=== PATIENT | female | born 1960 ===

== ENCOUNTER 2017-07-20 12:13 | Emergency (ER) | payer MEDICARE, OTHER ==
[2017-07-20 12:13] VITALS: BMI 29.1
[2017-07-20 12:28] VITALS: TEMP 98
[2017-07-20] MEDS ORDERED: Albuterol-Ipratrop 3 mg / 0.5 (3 ml) UD ONE (13:34)
[2017-07-20] MEDS: Albuterol-Ipratrop 3 mg / 0.5 (3 ml) UD IH SCH (13:44)
[2017-07-20 13:59] LABS: BASO % 0.2 % (0.0-2.0); EOS # 0.2 K/uL (0.0-0.7); EOS % 2.5 % (0.0-4.0); HEMOGLOBIN 13.4 g/dL (11.0-16.0); LYMPH # 2.2 K/uL (1.0-4.3); LYMPH % 23.2 % (20.0-40.0); MEAN CELL VOLUME 91.8 fL (81.0-99.0); MEAN CORPUSCULAR HEMOGLOBIN 30.4 pg (27.0-31.0); MEAN CORPUSCULAR HGB CONC 33.1 g/dL (33.0-37.0); MEAN PLATELET VOLUME 9.3 fL (7.2-11.7); MONO # 1.2 K/uL (0.0-0.8); MONO % 12.4 % (0.0-10.0); NEUT # 5.8 K/uL (1.8-7.0); NEUT % 61.7 % (50.0-75.0); NRBC % 0.1 % (0.0-2.0); RBC 4.39 Mil/uL (3.80-5.20); RED CELL DISTRIBUTION WIDTH 14.8 % (11.5-14.5); WHITE BLOOD COUNT 9.4 K/uL (4.8-10.8)
[2017-07-20 14:11] LABS: ALB/GLOB RATIO 0.9 (1.0-2.1); ALBUMIN 3.7 g/dL (3.5-5.0); ALT/SGPT 36 U/L (9-52); AST/SGOT 27 U/L (14-36); BLOOD UREA NITROGEN 13 mg/dL (7-17); CALCIUM 9.3 mg/dl (8.6-10.4); GFR AFRICAN-AMERICAN > 60; GFR NON-AFRICAN AMERICAN > 60
--- NOTE | 2017-07-20 14:21 | RAD ---
HISTORY: SOB, productive cough, hypoxia COMPARISON: 03/04/2016 TECHNIQUE: Chest PA and lateral FINDINGS: LUNGS: Lower lobe infiltrates accentuated by body habitus. PLEURA: No significant pleural effusion identified. No pneumothorax apparent. CARDIOVASCULAR: No radiographic findings to suggest acute or significant cardiovascular disease. OSSEOUS STRUCTURES: No significant abnormalities. Stable thoracolumbar scoliosis VISUALIZED UPPER ABDOMEN: Normal. OTHER FINDINGS: None. IMPRESSION: Lower lobe infiltrates/interstitial lung disease. More pronounced findings compared to the prior study.
[2017-07-20 14:23] LABS: B-TYPE NATRIURETIC PEPTIDE 370 pg/mL (0-900)
--- NOTE | 2017-07-20 14:55 | C.PDOC ---
Time Seen by Provider: 07/20/17 13:08 Chief Complaint (Nursing): Shortness Of Breath History Per: Patient Onset/Duration Of Symptoms: Days (about 1 week) Current Symptoms Are (Timing): Still Present Initiating Event: Upper Respiratory Illness Current Respiratory Medications: See Home Med List Severity: Moderate Associated Symptoms: Productive Cough Additional History Per: Prior Records Past Medical History Reviewed: Historical Data, Nursing Documentation, Vital Signs Vital Signs: Last Vital Signs Temp 98 F 07/20/17 12:19 Pulse 91 H 07/20/17 12:19 Resp 18 07/20/17 13:04 BP 97/60 L 07/20/17 12:19 Pulse Ox 90 L 07/20/17 14:59 - Medical History PMH: Asthma, CHF (as per medical record), COPD (on home O2), Depression, Hypercholesterolemia, Kidney Stones, Peripheral Edema - [facility] Procedures INJECT/INFUSE NEC (07/14/13) INSERTION OF ENDOTRACHEAL AIRWAY INTO TRACHEA, VIA OPENING (12/08/14) LOCAL EXCIS BREAST LES (04/12/97) NEBULIZER THERAPY (11/04/12) RESPIRATORY VENTILATION, GREATER THAN 96 CONSECUTIVE HOURS (12/08/14) Family History: States: Unknown Family Hx - Social History Hx Tobacco Use: Yes (Quit 2 years ago) Hx Alcohol Use: No Hx Substance Use: No - Immunization History Hx Tetanus Toxoid Vaccination: No Hx Influenza Vaccination: No Hx Pneumococcal Vaccination: Yes Review Of Systems Except As Marked, All Systems Reviewed And Found Negative. Constitutional: Negative for: Fever ENT: Positive for: Nose Congestion Cardiovascular: Negative for: Chest Pain, Edema Respiratory: Positive for: Cough, Shortness of Breath, Sputum Gastrointestinal: Negative for: Vomiting, Abdominal Pain Musculoskeletal: Negative for: Neck Pain, Back Pain, Leg Pain Skin: Negative for: Rash Neurological: Negative for: Weakness, Numbness Physical Exam - Physical Exam Appears: In Acute Distress (mild) Skin: Normal Color, Warm, Dry, No Rash Head: Atraumatic, Normacephalic Eye(s): bilateral: PERRL, EOMI Neck: Normal ROM, Supple Cardiovascular: Rhythm Regular Respiratory: No Accessory Muscle Use, Rhonchi Gastrointestinal/Abdominal: Soft, No Tenderness Back: No CVA Tenderness Extremity: Normal ROM, No Pedal Edema, No Calf Tenderness Neurological/Psych: Oriented x3, Normal Motor, Normal Sensation ED Course And Treatment - Laboratory Results Result Diagrams: 07/20/17 13:54 07/20/17 13:54 Lab Interpretation: No Acute Changes ECG: Interpreted By Me ECG Rhythm: Sinus Rhythm ECG Interpretation: No Acute Changes Rate From EC O2 Sat by Pulse Oximetry: 90 Pulse Ox Interpretation: Abnormal Interpretation Of Abnormal: Hypoxia on RA - Radiology CXR: Viewed By Me, Read By Radiologist CXR Interpretation: Yes: Other (Lower lobe infiltrates/interstitial lung disease. More pronounced findings compared to the prior study.) Progress Note: Pt needs admission, however she is not willing to stay. She insists on leaving AMA even after I explained to her that she may become worse at home to the point where she can stop breathing and . Against Medical Advice - AMA Patient Left Against Medical Advice: The patient declines admission to the hospital and wishes to leave the Emergency Department. This action is against my medical advice. This decision was made with informed refusal. The patient was told that admission to the hospital is necessary. Explanation of the reasons why were discussed. The risks of leaving were explained to the patient and include, but are not limited to, worsening of known or currently unknown conditions, permanent disability and from undiagnosed or untreated conditions. The patient has the capacity to make this informed decision and understands my explanation of the current medical problem and risks of leaving. The patient voluntarily accepts these risks and signed an AMA form documenting our conversation. The patient was given the opportunity to ask questions and reconsider. The patient was encouraged to return to the Emergency Department at any time for further care. Progress - Interventions Interventions:: Observation, Intravenous fluid, Oxygen - Medications Administered Oral: Other (Abx) Inhaled nebulized: Anticholinergic, Beta-2 agonist Intravenous: Corticosteroid - Data Reviewed Data Reviewed: Lab, Diagnostic imaging, EKG, Old records - Patient Status Patient status: Partially improved - Critical Care Citical Care: Excluding Proc Time Critical Care Time: 60 minutes - Continuity of Care Discussed patient case with:: Patient, ED Nurse Disposition Counseled Patient/Family Regarding: Studies Performed, Diagnosis, Need For Followup, Rx Given - Disposition Referrals: Fermin Le MD [Staff Provider] - Disposition: AGAINST MEDICAL ADVICE Disposition Time: 15:10 Condition: GUARDED Additional Instructions: Follow up with you doctor as soon as possible. Return to the ER if you change your mind, develop chest pain, shortness of breath, fever, worsening of symptoms or if you have any other concerns. Prescriptions: Albuterol Sulfate [Ventolin Hfa] 2 puff IH Q4 PRN #1 unit PRN Reason: Wheezing Moxifloxacin [Avelox] 400 mg PO DAILY #7 tab predniSONE [predniSONE Tab] 2 tab PO DAILY #10 tab Instructions: Leaving Against Medical Advice, Pneumonia, Adult (DC) Forms: [employer] (Kiswahili) - Clinical Impression Clinical Impression: Left against medical advice, COPD exacerbation, Pneumonia
[2017-07-20 15:15] VITALS: BP 114/70; PULSE 92; RESP 22
[2017-07-20 15:20] VITALS: O2SAT 90
--- NOTE | 2017-07-21 19:12 | CARD ---
APPROVED REPORT EKG Measurement Heart [id number] <Conclusion> Normal sinus rhythm Normal ECG
== END 2017-07-20 15:13 | disposition left against medical advice (07) ==
LOC: C.ER 12:13
DX: J44.1 Chronic obstructive pulmonary disease with (acute) exacerbation (principal); J18.9 Pneumonia, unspecified organism
CPT/HCPCS: 71046; 80053; 83735; 83880; 84484; 85025; 87040; 93005; 94640; 96374; 99283; J2930

== ENCOUNTER 2018-04-06 09:31 | Inpatient (IN) | payer MEDICARE, OTHER ==
[2018-04-06 09:31] VITALS: BMI 29.1
[2018-04-06] MEDS ORDERED: Albuterol-Ipratrop 3 mg / 0.5 (3 ml) UD ONE ×2 (09:57→11:19)
[2018-04-06] MEDS ORDERED: Magnesium Sulfate 1 gm in D5W 1 GM/100 ML BAG IVPB ONE ×2 (10:08→10:19)
[2018-04-06 10:21] LABS: BASO % 0.4 % (0.0-2.0); EOS # 0.1 K/uL (0.0-0.7); EOS % 0.9 % (0.0-4.0); HEMOGLOBIN 14.1 g/dL (11.0-16.0); LYMPH # 1.2 K/uL (1.0-4.3); MEAN CELL VOLUME 92.5 fL (81.0-99.0); MEAN CORPUSCULAR HEMOGLOBIN 29.3 pg (27.0-31.0); MEAN CORPUSCULAR HGB CONC 31.6 g/dL (33.0-37.0); MEAN PLATELET VOLUME 10.5 fL (7.2-11.7); MONO # 0.6 K/uL (0.0-0.8); MONO % 9.6 % (0.0-10.0); NEUT # 4.6 K/uL (1.8-7.0); NEUT % 70.1 % (50.0-75.0); RBC 4.83 Mil/uL (3.80-5.20); RED CELL DISTRIBUTION WIDTH 14.7 % (11.5-14.5); WHITE BLOOD COUNT 6.5 K/uL (4.8-10.8)
[2018-04-06] MEDS: Albuterol-Ipratrop 3 mg / 0.5 (3 ml) UD IH SCH ×2 (10:45→11:00)
--- NOTE | 2018-04-06 10:45 | C.PDOC ---
History Of Present Illness 58 y/o female,w/PMhx of COPD, brought to ER by ambulance for evaluation of nasal congestion x 6 dys and cough, wheezing, difficulty breathing x 3 days. As per EMS, patient was found to have 79 % pulse O2 saturation at home and they treated her with 2 Duonebs in the field. Patient reports that she has history of intubation with trach placement in October 2017 when she was visiting her son in [place].Patient notes that she went to [facility] 6 days ago with her son who had an interview. Denies having known sick contacts, fever, chills, dizziness, CP, nausea,vomiting, and abdominal pain. Time Seen by Provider: 04/06/18 09:34 Chief Complaint (Nursing): Respiratory Distress History Per: Patient, EMS History/Exam Limitations: no limitations Onset/Duration Of Symptoms: Days Current Symptoms Are (Timing): Still Present Severity: Moderate Past Medical History Reviewed: Historical Data, Nursing Documentation, Vital Signs Vital Signs: Last Vital Signs Temp 98.3 F 04/06/18 09:58 Pulse 102 H 04/06/18 09:58 Resp 22 04/06/18 09:58 BP 96/52 L 04/06/18 09:58 Pulse Ox 84 L 04/06/18 09:58 - Medical History PMH: Asthma, CHF (as per medical record), COPD (on home O2), Depression, Hypercholesterolemia, Kidney Stones, Peripheral Edema, Chronic Kidney Disease Denies: Dementia, HTN (PT DENIES) Other Surgeries: Hx of surgeries - [facility] Procedures INJECT/INFUSE NEC (07/14/13) INSERTION OF ENDOTRACHEAL AIRWAY INTO TRACHEA, VIA OPENING (12/08/14) LOCAL EXCIS BREAST LES (04/12/97) NEBULIZER THERAPY (11/04/12) RESPIRATORY VENTILATION, GREATER THAN 96 CONSECUTIVE HOURS (12/08/14) Family History: States: No Known Family Hx - Social History Hx Tobacco Use: Yes (Quit 2 years ago) Hx Alcohol Use: No Hx Substance Use: No - Immunization History Hx Tetanus Toxoid Vaccination: No Hx Influenza Vaccination: No Hx Pneumococcal Vaccination: Yes Review Of Systems Except As Marked, All Systems Reviewed And Found Negative. Constitutional: Negative for: Fever, Chills ENT: Positive for: Nose Congestion Cardiovascular: Negative for: Chest Pain Respiratory: Positive for: Cough, Shortness of Breath, Wheezing Gastrointestinal: Negative for: Nausea, Vomiting, Abdominal Pain Physical Exam - Physical Exam Appears: Non-toxic, No Acute Distress, Other (speaking in full sentences) Skin: Normal Color, Warm, Dry Head: Atraumatic, Normacephalic Eye(s): bilateral: Normal Inspection Nose: Normal Oral Mucosa: Moist Throat: Normal, No Erythema, No Exudate, Other (fair air entryway) Neck: Supple Chest: Symmetrical Cardiovascular: Rhythm Regular Respiratory: No Rales, Rhonchi (diffuse rhonchi), Wheezing (diffuse expiratory wheezing) Gastrointestinal/Abdominal: Soft, No Tenderness, No Guarding, No Rebound Extremity: Normal ROM, Other (no pitting edema) Neurological/Psych: Oriented x3, Normal Speech ED Course And Treatment - Laboratory Results Result Diagrams: 04/06/18 10:18 04/06/18 10:18 ECG: Interpreted By Me, Viewed By Me ECG Rhythm: Sinus Rhythm Interpretation Of ECG: NSR with normal intervals, left axis deviation, and no ST elevations Rate From EC O2 Sat by Pulse Oximetry: 84 (RA) Pulse Ox Interpretation: Abnormal - Radiology CXR: Interpreted by Me CXR Interpretation: Yes: No Acute Disease Medical Decision Making Medical Decision Making: Plan: --Labs --CXR --Albuterol --Solu-Medrol IV --Magnesium Sulfate IV Patient reassessed, w/minimum improvement. O2 sat now 90% on 2LNC. Plan admit for further evaluation and management. Patient agreeable w/POC. 11:45 case d/w hospitalist Dr.Naresh Harvey who accepts pt to his service. Disposition Counseled Patient/Family Regarding: Studies Performed, Diagnosis - Disposition Disposition: HOSPITALIZED Disposition Time: 11:47 Condition: STABLE - Clinical Impression Clinical Impression: COPD exacerbation - Scribe Statement The provider has reviewed the documentation as recorded by the Harpreetibe Venus Bishop Provider Attestation: All medical record entries made by the Scribe were at my direction and personally dictated by me. I have reviewed the chart and agree that the record accurately reflects my personal performance of the history, physical exam, medical decision making, and the department course for this patient. I have also personally directed, reviewed, and agree with the discharge instructions and disposition.
[2018-04-06 10:47] LABS: ALB/GLOB RATIO 1.3 (1.0-2.1); ALBUMIN 4.3 g/dL (3.5-5.0); ALT/SGPT 23 U/L (9-52); AST/SGOT 31 U/L (14-36); BLOOD UREA NITROGEN 16 mg/dL (7-17); CALCIUM 8.9 mg/dl (8.6-10.4); GFR NON-AFRICAN AMERICAN > 60
[2018-04-06 10:52] LABS: B-TYPE NATRIURETIC PEPTIDE 192 pg/mL (0-900)
[2018-04-06 11:20] LABS: ARTERIAL BLOOD GAS HCO3 25.8 mmol/L (21-28); ARTERIAL BLOOD GAS HEMOGLOBIN 14.1 g/dL (11.7-17.4); ARTERIAL BLOOD GAS O2 SAT 93.6 % (95-98); ARTERIAL BLOOD GAS PCO2 82 mm/Hg (35-45); ARTERIAL BLOOD GAS PO2 67 mm/Hg (80-100); ARTERIAL BLOOD GAS TCO2 34.5 mmol/L (22-28)
[2018-04-06] MEDS ORDERED: Albuterol-Ipratrop 3 mg / 0.5 (3 ml) UD INH PRN (14:20)
--- NOTE | 2018-04-06 14:26 | CP.PCM.HP ---
<Sharan Arriola - Last Filed: 04/06/18 14:52> History of Present Illness - History of Present Illness History of Present Illness: PGY-1 History and Physical for Dr. Marisol Haddadterrie Wayne is a 58-year-old female with COPD complaining of shortness of breath and low 02 sat on home monitor. Patient first reports experiencing a mild cough with clear sputum production. Then over the past few days, patient began to develop increasing shortness of breath. Patient is on home 02, typically set at 3l- with increasing SOB she required 4L and still found O2 sat to be in low 70s. Patient was last hospitalized with COPD exacerbation in October 2017 when she was on a flight to [place], which had to be grounded because her O2 saturation dropped to 50%. At this time she then had a tracheostomy placed at the hospital and required CPR. Tracheostomy has since been reversed. At baseline she is not short of breath at rest, but does become short of breath with mild exertion. For the most part she is able to function comfortrably using home oxygen. Surgical: multiple , tracheostomy Social: no alcohol, no drugs, 20 pack year smoking (quit 2 years ago). 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 Lives at home with and grandson, [employer]LL REPA[employer]ER comes 4 hours/day Allergies: none Medication: Takes one medication at home by mouth, does not remember name of medication. States she does not use any inhalers at home. Past Medical History: COPD Family Hx: unknown PMD: Dr. Fermin Le Code: Full Code Present on Admission - Present on Admission Any Indicators Present on Admission: No Review of Systems - Constitutional Constitutional: absent: Chills, Fatigue, Fever - EENT Eyes: absent: Blind Spots, Blurred Vision Nose/Mouth/Throat: Dry Mouth. absent: Nasal Congestion, Nasal Discharge, Nasal Obstruction - Cardiovascular Cardiovascular: absent: Chest Pain, Chest Pain at Rest, Chest Pain with Activity, Edema, Pain Radiating to Arm/Neck/Jaw, Pedal Edema - Respiratory Respiratory: Cough, Dyspnea (shortness of breath), Dyspnea on Exertion. absent: Change in Mucous Color Additional comments: Cough productive of clear mucous - Gastrointestinal Gastrointestinal: absent: Diarrhea, Nausea, Vomiting - Genitourinary Genitourinary: absent: Dysuria, Flank Pain - Musculoskeletal Musculoskeletal: absent: Back Pain, Neck Pain, Numbness, Tingling - Neurological Neurological: absent: Confusion, Dizziness, Numbness - Psychiatric Psychiatric: absent: Anxiety, Depression - Endocrine Endocrine: absent: Fatigue, Palpitations Past Patient History - Infectious Disease Hx of Infectious Diseases: None - Tetanus Immunizations Tetanus Immunization: Unknown - Past Medical History & Family History Past Medical History?: Yes - Past Social History Smoking Status: Former Smoker - CARDIAC Hx Congestive Heart Failure: Yes (as per medical record) Hx Hypercholesterolemia: Yes Hx Hypertension: No (PT DENIES) Hx Peripheral Edema: Yes - PULMONARY Hx Asthma: Yes Hx Chronic Obstructive Pulmonary Disease (COPD): Yes (on home O2) - NEUROLOGICAL Hx Dementia: No - HEENT Hx HEENT Problems: No - RENAL Hx Chronic Kidney Disease: Yes Hx Kidney Stones: Yes - ENDOCRINE/METABOLIC Hx Diabetes Mellitus Type 2: No - HEMATOLOGICAL/ONCOLOGICAL Hx Blood Disorders: No - MUSCULOSKELETAL/RHEUMATOLOGICAL Hx Musculoskeletal Disorders: No Hx Falls: No - GASTROINTESTINAL Hx Gastrointestinal Disorders: No - GENITOURINARY/GYNECOLOGICAL Hx Genitourinary Disorders: No - PSYCHIATRIC Hx Depression: Yes Hx Substance Use: No - SURGICAL HISTORY Hx Surgeries: Yes Hx Tubal Ligation: Yes Other/Comment: LT BREAST LUMPECTOMY..BENIGN - ANESTHESIA Hx Anesthesia: Yes Hx Anesthesia Reactions: No Hx Malignant Hyperthermia: No Meds Allergies/Adverse Reactions: Allergies Allergy/AdvReac Type Severity Reaction Status Date / Time No Known Allergies Allergy Verified 04/06/18 09:47 Physical Exam - Constitutional Appears: Non-toxic, No Acute Distress - Head Exam Head Exam: ATRAUMATIC, NORMOCEPHALIC - Eye Exam Eye Exam: EOMI, Normal appearance - ENT Exam ENT Exam: Mucous Membranes Dry Additional comments: cyanotic lips - Respiratory Exam Respiratory Exam: Rhonchi (rhonic at bases bilaterally), Wheezes (Diffuse expiratory wheezes). absent: Accessory Muscle Use, Rales, Respiratory Distress Additional comments: On bipap - Cardiovascular Exam Cardiovascular Exam: REGULAR RHYTHM, +S1, +S2 - GI/Abdominal Exam GI & Abdominal Exam: Normal Bowel Sounds, Soft. absent: Tenderness - Extremities Exam Extremities exam: Negative for: pedal edema, tenderness Additional comments: clubbing - Neurological Exam Neurological exam: Alert, CN II-XII Intact, Oriented x3 - Psychiatric Exam Psychiatric exam: Normal Affect, Normal Mood - Skin Skin Exam: Dry, Intact Results - Vital Signs Recent Vital Signs: Last Vital Signs Temp 98.3 F 04/06/18 14:09 Pulse 99 H 04/06/18 14:09 Resp 20 04/06/18 14:09 BP 120/76 04/06/18 14:09 Pulse Ox 93 L 04/06/18 14:09 - Labs Result Diagrams: 04/06/18 10:18 04/06/18 10:18 Labs: Laboratory Results - last 24 hr 04/06/18 04/06/18 04/06/18 10:18 10:18 11:16 WBC 6.5 RBC 4.83 Hgb 14.1 Hct 44.7 MCV 92.5 MCH 29.3 MCHC 31.6 L RDW 14.7 H Plt Count 170 D MPV 10.5 Neut % (Auto) 70.1 Lymph % (Auto) 19.0 L Clayton % (Auto) 9.6 Eos % (Auto) 0.9 Baso % (Auto) 0.4 Neut # (Auto) 4.6 Lymph # (Auto) 1.2 Clayton # (Auto) 0.6 Eos # (Auto) 0.1 Baso # (Auto) 0.0 Puncture Site Rba pCO2 82 H* pO2 67 L HCO3 25.8 ABG pH 7.20 L ABG Total CO2 34.5 H ABG O2 Saturation 93.6 L ABG Base Excess 1.3 ABG Hemoglobin 14.1 ABG Carboxyhemoglobin 2.1 H POC ABG HHb (Measured) 6.2 H ABG Methemoglobin 0.5 Osvaldo Test Na A-a O2 Difference 80.0 Respiratory Index 1.2 Hgb O2 Saturation 91.2 L Liter Flow 4.0 FiO2 35.0 Crit Value Called To Dr.brooks rapp Crit Value Called By Foster doherty Crit Value Read Back Y Blood Gas Notified Time 1115 Sodium 138 Potassium 3.7 Chloride 99 Carbon Dioxide 31 H Anion Gap 12 BUN 16 Creatinine 0.8 Est GFR ( Amer) > 60 Est GFR (Non-Af Amer) > 60 Random Glucose 117 H Calcium 8.9 Total Bilirubin 0.9 AST 31 ALT 23 Alkaline Phosphatase 91 Troponin I < 0.0120 NT-Pro-B Natriuret Pep 192 Total Protein 7.6 Albumin 4.3 Globulin 3.3 Albumin/Globulin Ratio 1.3 Assessment & Plan - Assessment and Plan (Free Text) Assessment: 58 year old female presenting with cough and shortness of breath admitted for COPD exacerbation COPD Exacerbation -On BiPap -CXR portable 04/06 - official read pending; no clear infiltrates visible -Pulmonary consult, Dr. Rose - f/u recs Meds -Duonebs INH Q4 KORINA -Duonebs INH Q2 prn -Solumedrol 40 mg IV daily (125 mg IV given once in ED) -Mucinex LA 600 mg PO BID -Pulmicort 0.25 mg INH Q12 -Azithromycin 500 mg IV daily PPx GI ppx not indicated DVT: Heparin 5000 U SC Q12, SCDs Assessment and plan discussed with Dr. Marisol Arriola, PGY-1 <Guerrero Damon - Last Filed: 04/06/18 17:07> Results - Vital Signs Recent Vital Signs: Last Vital Signs Temp 98.2 F 04/06/18 16:00 Pulse 99 H 04/06/18 16:00 Resp 24 04/06/18 16:00 BP 112/68 04/06/18 16:00 Pulse Ox 93 L 04/06/18 16:00 - Labs Result Diagrams: 04/06/18 10:18 04/06/18 10:18 Labs: Laboratory Results - last 24 hr 04/06/18 04/06/18 04/06/18 10:18 10:18 11:16 WBC 6.5 RBC 4.83 Hgb 14.1 Hct 44.7 MCV 92.5 MCH 29.3 MCHC 31.6 L RDW 14.7 H Plt Count 170 D MPV 10.5 Neut % (Auto) 70.1 Lymph % (Auto) 19.0 L Clayton % (Auto) 9.6 Eos % (Auto) 0.9 Baso % (Auto) 0.4 Neut # (Auto) 4.6 Lymph # (Auto) 1.2 Clayton # (Auto) 0.6 Eos # (Auto) 0.1 Baso # (Auto) 0.0 Puncture Site Rba pCO2 82 H* pO2 67 L HCO3 25.8 ABG pH 7.20 L ABG Total CO2 34.5 H ABG O2 Saturation 93.6 L ABG Base Excess 1.3 ABG Hemoglobin 14.1 ABG Carboxyhemoglobin 2.1 H POC ABG HHb (Measured) 6.2 H ABG Methemoglobin 0.5 Osvaldo Test Na A-a O2 Difference 80.0 Respiratory Index 1.2 Hgb O2 Saturation 91.2 L Liter Flow 4.0 FiO2 35.0 Crit Value Called To Dr.brooks rapp Crit Value Called By Foster doherty Crit Value Read Back Y Blood Gas Notified Time 1115 Sodium 138 Potassium 3.7 Chloride 99 Carbon Dioxide 31 H Anion Gap 12 BUN 16 Creatinine 0.8 Est GFR ( Amer) > 60 Est GFR (Non-Af Amer) > 60 Random Glucose 117 H Calcium 8.9 Total Bilirubin 0.9 AST 31 ALT 23 Alkaline Phosphatase 91 Troponin I < 0.0120 NT-Pro-B Natriuret Pep 192 Total Protein 7.6 Albumin 4.3 Globulin 3.3 Albumin/Globulin Ratio 1.3 Attending/Attestation - Attestation I have personally seen and examined this patient.: Yes I have fully participated in the care of the patient.: Yes I have reviewed all pertinent clinical information: Yes Notes (Text): 58 year old female presenting with cough and shortness of breath admitted for COPD exacerbation Acute COPD Exacerbation
[2018-04-06] MEDS: Albuterol-Ipratrop 3 mg / 0.5 (3 ml) UD INH SCH ×2 (16:57→20:31)
[2018-04-06] MEDS: guaiFENesin 600 mg ER Tab PO SCH (18:06)
[2018-04-06] MEDS: MethylPREDNISolone 40 mg Vial IVP SCH ×2 (18:07→23:50)
--- NOTE | 2018-04-06 18:45 | RAD ---
HISTORY: SOB COMPARISON: Chest x-ray performed 07/20/17 TECHNIQUE: Chest, one view. FINDINGS: LUNGS: Patchy infiltrates involving the medial right lower lobe and left mid to lower lung zones may reflect atelectasis however pneumonia is not excluded in the proper clinical setting. PLEURA: No significant pleural effusion identified. No definite pneumothorax . CARDIOVASCULAR: Cardiomegaly. Ectatic aorta with atherosclerotic calcifications. OSSEOUS STRUCTURES: Scoliosis. Multilevel degenerative changes of the spine. Changes involving bilateral shoulder joints, partially imaged. VISUALIZED UPPER ABDOMEN: Unremarkable. OTHER FINDINGS: None. IMPRESSION: Patchy infiltrates involving the medial right lower lobe and left mid to lower lung zones may reflect atelectasis however pneumonia is not excluded in the proper clinical setting. Cardiomegaly. Ectatic aorta.
[2018-04-06] MEDS ORDERED: Budesonide 0.5 mg/2 ml Inhal Susp UD INH SCH (20:00)
[2018-04-06] MEDS: Budesonide 0.25 mg/2 ml Inhal Susp UD INH SCH (20:32)
[2018-04-07] MEDS: Albuterol-Ipratrop 3 mg / 0.5 (3 ml) UD INH SCH ×7 (00:19→23:51)
[2018-04-07] MEDS: MethylPREDNISolone 40 mg Vial IVP SCH ×4 (06:23→23:44)
--- NOTE | 2018-04-07 07:36 | CP.PCM.PN ---
Subjective - Date & Time of Evaluation Date of Evaluation: 04/07/18 Time of Evaluation: 07:33 - Subjective Subjective: PGY-1 Elizabeth Billingsley D.O. Medicine progress note for Dr. Renner's service: Patient was seen and examined this morning. She is on BiPAP, no acute distress. Patient is insisting that someone told her she could go home today, and she would like to leave. Explained to patient that she is desaturating off of BiPAP and it would be better for her to get more treatment and be seen by reliability manager. Patient agrees to stay for now. She says she is feeling better. She endorses cough. Denies SOB presently. Denies fevers and chills. Objective - Vital Signs/Intake and Output Vital Signs (last 24 hours): Temp Pulse Resp BP Pulse Ox 98 F 77 22 122/78 92 L 04/07/18 05:38 04/07/18 05:38 04/07/18 05:38 04/07/18 05:38 04/07/18 05:38 - Medications Medications: Current Medications Albuterol/Ipratropium (Duoneb 3 Mg/0.5 Mg (3 Ml) Ud) 3 ml INH RQ4 KORINA Last Admin: 04/07/18 03:18 Dose: 3 ml Albuterol/Ipratropium (Duoneb 3 Mg/0.5 Mg (3 Ml) Ud) 3 ml INH RQ2 PRN PRN Reason: Shortness of Breath Budesonide (Pulmicort Respules) 0.25 mg INH RQ12 KORINA Last Admin: 04/06/18 20:32 Dose: 0.25 mg Guaifenesin (Mucinex La) 600 mg PO BID KORINA Last Admin: 04/06/18 18:06 Dose: 600 mg Heparin Sodium (Porcine) (Heparin) 5,000 units SC Q12 KORINA Last Admin: 04/06/18 22:06 Dose: 5,000 units Azithromycin 500 mg/ Sodium (Chloride) 250 mls @ 250 mls/hr IVPB DAILY [facility]; Protocol Influenza Virus Vaccine (Flucelvax Quad [id number] Syr) 60 mcg IM .ONCE ONE Stop: 04/07/18 10:01 Methylprednisolone (Solu-Medrol) 40 mg IVP Q6 KORINA Last Admin: 04/07/18 06:23 Dose: 40 mg - Labs Labs: 04/06/18 10:18 04/06/18 10:18 - Constitutional Appears: Non-toxic, No Acute Distress - Head Exam Head Exam: ATRAUMATIC, NORMAL INSPECTION - Eye Exam Eye Exam: EOMI, Normal appearance - ENT Exam ENT Exam: Mucous Membranes Moist - Neck Exam Neck Exam: Normal Inspection - Respiratory Exam Respiratory Exam: Decreased Breath Sounds, Rales (b/l lower lung sosa), NORMAL BREATHING PATTERN. absent: Accessory Muscle Use, Wheezes, Respiratory Distress Additional comments: BiPAP- FiO2 60% - Cardiovascular Exam Cardiovascular Exam: REGULAR RHYTHM, +S1, +S2 - GI/Abdominal Exam GI & Abdominal Exam: Soft. absent: Distended, Tenderness - Extremities Exam Extremities Exam: Normal Inspection. absent: Pedal Edema - Back Exam Back Exam: NORMAL INSPECTION - Neurological Exam Neurological Exam: Alert, Awake, CN II-XII Intact, Oriented x3 - Psychiatric Exam Psychiatric exam: Normal Affect, Normal Mood - Skin Skin Exam: Dry, Normal Color, Warm Assessment and Plan - Assessment and Plan (Free Text) Assessment: Patient is a 58 yo female with a history of COPD on home O2 who presented with SOB. Treating patient for COPD exacerbation. Patient has 20 pack year history of smoking, reports quitting 2 years ago. Last year, patient was hospitalized for cardiopulmonary arrest- requiring CPR and tracheostomy (now reversed). Plan: Acute on chronic hypoxic respiratory failure with hypercapnia requiring noninvasive mechanical ventilation- severe COPD - Afebrile, no leukocytosis - CXR: patchy infiltrates in medial RLL and L mid-lower lung zones (atelectasis vs PNA), cardiomegaly - BiPAP PRN - Patient desaturating into 70s with NC and 60s on RA - Flu negative - f/u Legionella, Mycoplasma - f/u Sputum Cx - Blood Cx no growth >24 hrs - Duoneb Q4H KORINA, Q2H PRN - Pulmicort Q12H - Mucinex LA 600 mg PO BID - Azithromycin 500 mg IV daily- started 04/06 - Rocephin 1 g IV Q12H- started 04/07 - Solumedrol 40 mg IV Q6H - Pulmonology consulted ([place]) Ppx: VTE: SCDs, heparin 5000 units SC Q12H GI: not indicated Code status: full code Case discussed with attending, Dr. Renner.
[2018-04-07 07:52] VITALS: RESP 20
[2018-04-07 07:52] LABS: BASO % 0.2 % (0.0-2.0); EOS % 0.1 % (0.0-4.0); LYMPH # 0.7 K/uL (1.0-4.3); MEAN CORPUSCULAR HEMOGLOBIN 28.6 pg (27.0-31.0); MEAN CORPUSCULAR HGB CONC 30.2 g/dL (33.0-37.0); MEAN PLATELET VOLUME 10.9 fL (7.2-11.7); MONO # 0.2 K/uL (0.0-0.8); MONO % 5.4 % (0.0-10.0); NEUT # 2.7 K/uL (1.8-7.0); NEUT % 75.3 % (50.0-75.0); NRBC % 0.3 % (0.0-2.0); RBC 4.79 Mil/uL (3.80-5.20); RED CELL DISTRIBUTION WIDTH 14.9 % (11.5-14.5); WHITE BLOOD COUNT 3.6 K/uL (4.8-10.8)
[2018-04-07 07:55] LABS: HEMOGLOBIN 13.7 g/dL (11.0-16.0); MEAN CELL VOLUME 94.7 fL (81.0-99.0)
[2018-04-07 07:55] LABS: BLOOD UREA NITROGEN 22 mg/dL (7-17); GFR NON-AFRICAN AMERICAN > 60
[2018-04-07 07:56] LABS: ALB/GLOB RATIO 1.3 (1.0-2.1); ALBUMIN 4.1 g/dL (3.5-5.0); ALT/SGPT 16 U/L (9-52); AST/SGOT 26 U/L (14-36); CALCIUM 9.1 mg/dl (8.6-10.4)
[2018-04-07] MEDS ORDERED: Tiotropium 18 mcg Cap For Inhalation INH SCH (08:00)
[2018-04-07] MEDS: Budesonide 0.25 mg/2 ml Inhal Susp UD INH SCH ×2 (08:04→20:40)
[2018-04-07] MEDS ORDERED: Influenza Vaccine 60 mcg/0.5 mL SYR (4YR UP) IM ONE (10:00)
[2018-04-07] MEDS: Azithromycin 500 MG in Sodium Chloride 0.9% 250 ML IVPB SCH (11:20)
[2018-04-07] MEDS: guaiFENesin 600 mg ER Tab PO SCH ×2 (11:21→18:07)
--- NOTE | 2018-04-07 11:31 | CARD ---
APPROVED REPORT Date of service: 04/06/2018 EKG Measurement Heart [id number] <Conclusion> Normal sinus rhythm Possible Left atrial enlargement Left axis deviation Pulmonary disease pattern Abnormal ECG
[2018-04-07 11:34] LABS: INFLUENZA A B NEGATIVE FOR FLU A/B (NEGATIVE)
[2018-04-07] MEDS: cefTRIAXone IV 1 gm in Dextros 50 ML IVPB SCH (13:09)
[2018-04-07 18:42] LABS: MYCOPLASMA PNEUMONIAE IGM NEGATIVE (NEGATIVE)
[2018-04-08] MEDS: Albuterol-Ipratrop 3 mg / 0.5 (3 ml) UD INH SCH ×3 (03:16→11:13)
[2018-04-08] MEDS: MethylPREDNISolone 40 mg Vial IVP SCH (05:51)
[2018-04-08] MEDS: cefTRIAXone IV 1 gm in Dextros 50 ML IVPB SCH (05:54)
[2018-04-08 07:34] LABS: BASO % 0.2 % (0.0-2.0); HEMOGLOBIN 13.8 g/dL (11.0-16.0); LYMPH # 1.1 K/uL (1.0-4.3); LYMPH % 13.3 % (20.0-40.0); MEAN CELL VOLUME 93.4 fL (81.0-99.0); MEAN CORPUSCULAR HEMOGLOBIN 29.5 pg (27.0-31.0); MEAN CORPUSCULAR HGB CONC 31.6 g/dL (33.0-37.0); MEAN PLATELET VOLUME 10.4 fL (7.2-11.7); MONO # 0.5 K/uL (0.0-0.8); MONO % 6.1 % (0.0-10.0); NEUT # 6.8 K/uL (1.8-7.0); NEUT % 80.4 % (50.0-75.0); NRBC % 0.1 % (0.0-2.0); RBC 4.69 Mil/uL (3.80-5.20); RED CELL DISTRIBUTION WIDTH 14.6 % (11.5-14.5)
[2018-04-08 07:43] LABS: WHITE BLOOD COUNT 8.5 K/uL (4.8-10.8)
[2018-04-08 07:51] LABS: ALB/GLOB RATIO 1.3 (1.0-2.1); ALT/SGPT 28 U/L (9-52); AST/SGOT 24 U/L (14-36); BLOOD UREA NITROGEN 28 mg/dL (7-17); CALCIUM 9.5 mg/dl (8.6-10.4); GFR NON-AFRICAN AMERICAN > 60
[2018-04-08 08:36] VITALS: BP 117/77; PULSE 80; TEMP 98.9; O2SAT 99
[2018-04-08] MEDS: Azithromycin 500 MG in Sodium Chloride 0.9% 250 ML IVPB SCH (09:53)
[2018-04-08] MEDS: guaiFENesin 600 mg ER Tab PO SCH (09:53)
[2018-04-08] MEDS: Budesonide 0.25 mg/2 ml Inhal Susp UD INH SCH (11:14)
--- NOTE | 2018-04-08 15:45 | CP.PCM.DIS ---
Provider - Provider Date of Admission: 04/06/18 11:50 Attending physician: Matthew Renner MD Primary care physician: Dr. Fermin Le Consults: 04/06/18 14:21 Pulmonology Consult Routine Comment: Consulting Provider: Kendrick Rose Consulting Physician: Kendrick Rose Reason for Consult: COPD Exacerbation Time Spent in preparation of Discharge (in minutes): 45 Diagnosis - Discharge Diagnosis (1) BiPAP (biphasic positive airway pressure) dependence Status: Acute Priority: High (2) COPD (chronic obstructive pulmonary disease) Status: Chronic Priority: High (3) Supplemental oxygen dependent Status: Acute Priority: High (4) History of tobacco use Status: Chronic Priority: Medium Hospital Course - Lab Results Lab Results: Micro Results 04/06/18 10:00 Blood Blood Culture - Preliminary NO GROWTH AFTER 48 HOURS 04/06/18 09:50 Blood Blood Culture - Preliminary NO GROWTH AFTER 48 HOURS 04/07/18 21:17 Sputum Gram Stain - Final Most Recent Lab Values WBC 8.5 K/uL (4.8-10.8) D 04/08/18 07:27 RBC 4.69 Mil/uL (3.80-5.20) 04/08/18 07:27 Hgb 13.8 g/dL (11.0-16.0) 04/08/18 07:27 Hct 43.8 % (34.0-47.0) 04/08/18 07:27 MCV 93.4 fL (81.0-99.0) 04/08/18 07:27 MCH 29.5 pg (27.0-31.0) 04/08/18 07:27 MCHC 31.6 g/dL (33.0-37.0) L 04/08/18 07:27 RDW 14.6 % (11.5-14.5) H 04/08/18 07:27 Plt Count 198 K/uL (130-400) 04/08/18 07:27 MPV 10.4 fL (7.2-11.7) 04/08/18 07:27 Neut % (Auto) 80.4 % (50.0-75.0) H 04/08/18 07:27 Lymph % (Auto) 13.3 % (20.0-40.0) L 04/08/18 07:27 Gates % (Auto) 6.1 % (0.0-10.0) 04/08/18 07:27 Eos % (Auto) 0.0 % (0.0-4.0) 04/08/18 07:27 Baso % (Auto) 0.2 % (0.0-2.0) 04/08/18 07:27 Neut # (Auto) 6.8 K/uL (1.8-7.0) 04/08/18 07: Lymph # (Auto) 1.1 K/uL (1.0-4.3) 04/08/18 07:27 Gates # (Auto) 0.5 K/uL (0.0-0.8) 04/08/18 07: Eos # (Auto) 0.0 K/uL (0.0-0.7) 04/08/18 07:27 Baso # (Auto) 0.0 K/uL (0.0-0.2) 04/08/18 07:27 Puncture Site Rba 04/06/18 11:16 pCO2 82 mm/Hg (35-45) H* 04/06/18 11:16 pO2 67 mm/Hg (80-100) L 04/06/18 11:16 HCO3 25.8 mmol/L (21-28) 04/06/18 11:16 ABG pH 7.20 (7.35-7.45) L 04/06/18 11:16 ABG Total CO2 34.5 mmol/L (22-28) H 04/06/18 11:16 ABG O2 Saturation 93.6 % (95-98) L 04/06/18 11:16 ABG Base Excess 1.3 mmol/L (-2.0-3.0) 04/06/18 11:16 ABG Hemoglobin 14.1 g/dL (11.7-17.4) 04/06/18 11:16 ABG Carboxyhemoglobin 2.1 % (0.5-1.5) H 04/06/18 11:16 POC ABG HHb (Measured) 6.2 % (0.0-5.0) H 04/06/18 11:16 ABG Methemoglobin 0.5 % (0.0-3.0) 04/06/18 11:16 Osvaldo Test Na 04/06/18 11:16 A-a O2 Difference 80.0 mm/Hg 04/06/18 11:16 Respiratory Index 1.2 04/06/18 11:16 Hgb O2 Saturation 91.2 % (95.0-98.0) L 04/06/18 11:16 Liter Flow 4.0 04/06/18 11:16 FiO2 35.0 % 04/06/18 11:16 Crit Value Called To Dr.brooks rapp 04/06/18 11:16 Crit Value Called By Foster doherty 04/06/18 11:16 Crit Value Read Back Y 04/06/18 11:16 Blood Gas Notified Time 1115 04/06/18 11:16 Sodium 138 mmol/L (132-148) 04/08/18 07:27 Potassium 4.8 mmol/L (3.6-5.2) 04/08/18 07:27 Chloride 98 mmol/L (98-107) 04/08/18 07:27 Carbon Dioxide 36 mmol/L (22-30) H 04/08/18 07:27 Anion Gap 8 (10-20) L 04/08/18 07:27 BUN 28 mg/dL (7-17) H 04/08/18 07:27 Creatinine 0.5 mg/dL (0.7-1.2) L 04/08/18 07:27 Est GFR ( Amer) > 60 04/08/18 07:27 Est GFR (Non-Af Amer) > 60 04/08/18 07:27 Random Glucose 168 mg/dL (65-105) H 04/08/18 07:27 Calcium 9.5 mg/dl (8.6-10.4) 04/08/18 07:27 Phosphorus 3.4 mg/dL (2.5-4.5) 04/08/18 07:27 Magnesium 1.9 mg/dL (1.6-2.3) 04/08/18 07:27 Total Bilirubin 0.5 mg/dL (0.2-1.3) 04/08/18 07:27 AST 24 U/L (14-36) 04/08/18 07:27 ALT 28 U/L (9-52) 04/08/18 07:27 Alkaline Phosphatase 77 U/L (38-126) 04/08/18 07:27 Troponin I < 0.0120 ng/mL (0.00-0.120) 04/06/18 10:18 NT-Pro-B Natriuret Pep 192 pg/mL (0-900) 04/06/18 10:18 Total Protein 7.1 g/dL (6.3-8.3) 04/08/18 07:27 Albumin 4.0 g/dL (3.5-5.0) 04/08/18 07:27 Globulin 3.1 gm/dL (2.2-3.9) 04/08/18 07:27 Albumin/Globulin Ratio 1.3 (1.0-2.1) 04/08/18 07:27 Influenza Typ A,B (EIA) Negative for flu a/b (NEGATIVE) 04/07/18 10:54 Ur L.pneumophila Ag Negative (NEGATIVE) 04/07/18 20:08 Mycoplasma pneumon IgM Negative (NEGATIVE) 04/07/18 10:54 - Hospital Course Hospital Course: Delmi Wayne is a 58-year-old female with COPD complaining of shortness of breath and low 02 sat on home monitor. Patient first reports experiencing a mild cough with clear sputum production. Then over the past few days, patient began to develop increasing shortness of breath. Patient is on home 02, typically set at 3l- with increasing SOB she required 4L and still found O2 sat to be in low 70s. Patient was last hospitalized with COPD exacerbation in October 2017 when she was on a flight to [place], which had to be grounded because her O2 saturation dropped to 50%. At this time she then had a tracheostomy placed at the hospital and required CPR. Tracheostomy has since been reversed. At baseline she is not short of breath at rest, but does become short of breath with mild exertion. For the most part she is able to function comfortably using home oxygen. CXR showed patchy infiltrates in medial RLL and L mid-lower lung zones (atelectasis vs PNA). ABG demonstrated respiratory acidosis with CO2 retention. patient was placed on BiPAP as she was desaturating into the 70s on supplemental O2. She was started on IV steroids and antibiotics. Influenza, Mycoplasma, and Legionella were negative. Patient remained on BiPAP throughout her hospitalization. She desaturated down to 75% on room air. Patient decided to leave AMA. All risks were thoroughly explained to the patient. She left with her portable O2 machine. She was not in respiratory distress. Discharge Exam - Head Exam Head Exam: ATRAUMATIC, NORMAL INSPECTION - Eye Exam Eye Exam: EOMI, Normal appearance - ENT Exam ENT Exam: Mucous Membranes Moist - Respiratory Exam Respiratory Exam: Decreased Breath Sounds, Rales, Wheezes. absent: Accessory Muscle Use - Cardiovascular Exam Cardiovascular Exam: REGULAR RHYTHM, +S1, +S2 - GI/Abdominal Exam GI & Abdominal Exam: Soft, Unremarkable. absent: Distended - Extremities Exam Extremities exam: normal inspection - Neurological Exam Neurological exam: Alert, Normal Gait, Oriented x3 - Psychiatric Exam Psychiatric exam: Agitated - Skin Skin Exam: Dry, Normal Color, Warm Discharge Plan - Follow Up Plan Condition: STABLE Disposition: AGAINST MEDICAL ADVICE Patient education suggested?: Yes
== END 2018-04-08 13:25 | disposition left against medical advice (07) | DRG 190 ==
LOC: C.ER 09:31 → C.6T 11:50
PROVIDERS: ADMIT Hospitalist; ATTEND Hospitalist
PROC: 5A09457 Assistance with Respiratory Ventilation, 24-96 Consecutive Hours, Continuous Positive Airway Pressure (ICD-10-PCS; principal; 2018-04-06)
DX: J44.1 Chronic obstructive pulmonary disease with (acute) exacerbation (principal); J18.9 Pneumonia, unspecified organism; E87.2 Acidosis; J44.0 Chronic obstructive pulmonary disease with (acute) lower respiratory infection; I50.9 Heart failure, unspecified; N18.9 Chronic kidney disease, unspecified; E78.00 Pure hypercholesterolemia, unspecified; Z99.81 Dependence on supplemental oxygen; Z87.891 Personal history of nicotine dependence; Z86.74 Personal history of sudden cardiac arrest; Z87.442 Personal history of urinary calculi; Z98.51 Tubal ligation status